=== PATIENT | male | born 1975 | race Hispanic/Latino ===

== ENCOUNTER 2024-10-26 07:43 | Emergency (ER) | payer SELFPAY ==
[2024-10-26] MEDS ORDERED: METFORMIN500 M2 PO (08:00)
[2024-10-26] MEDS ORDERED: FLUORESCEIN SODIUM 1 MG EA OD ONE (08:05)
[2024-10-26] MEDS ORDERED: TETRACAINE HCL 0.5 %/4 ML SOL OD ONE (08:05)
[2024-10-26] MEDS ORDERED: ISOVUE-300 (Iopamidol) 100 ML SDV IV ONE (08:25)
[2024-10-26] MEDS ORDERED: HYDROmorphone HCL 2 MG/AMP IV ONE (08:25)
[2024-10-26] MEDS ORDERED: MOXIFLOXACIN Hydrochloride 3 ML BTL OS ONE (08:25)
[2024-10-26] MEDS ORDERED: ONDANSETRON HCl 4 MG/2 ML SDV IV ONE (08:25)
[2024-10-26] MEDS ORDERED: AMPICILLIN & SULBACTAM SODIUM 3 GM in SODIUM CHLORIDE 0.9% 100 ML IV ONE (08:30)
[2024-10-26] MEDS ORDERED: VANCOMYCIN HCL 1 GM in SODIUM CHLORIDE 0.9% 250 ML IV ONE (08:30)
[2024-10-26] MEDS ORDERED: PIPERACILLIN Sodium-Tazobactam 3.375 GM in SODIUM CHLORIDE 0.9% 100 ML IV ONE (08:40)
[2024-10-26 08:55] LABS: BASO% 0.5 % (0-3); EOS% 11.9 % (0-8); HEMATOCRIT 46.3 % (39.0-50.0); HEMOGLOBIN 15.4 g/dl (14.0-18.0); IMMATURE GRANULOCYTES 0.1 % (0.0-5.0); LYMPH% 22.3 % (15-41); MEAN CELL VOLUME 89.9 fL CALC (80.0-100.0); MEAN CORPUSCULAR HGB 29.9 pG CALC (26.0-32.0); MEAN CORPUSCULAR HGB CONC 33.3 g/dL CAL (32.0-36.0); MONO% 5.5 % (2-13); NEUT# 4.4 thou/uL (1.82-7.42); NEUT% 59.7 % (42-76); RED BLOOD COUNT 5.15 mill/uL (4.70-6.10); RED CELL DISTRI WIDTH 14.1 % (11.5-15.5)
[2024-10-26 09:17] LABS: ALBUMIN 4.7 g/dL (3.2-5.0); BILIRUBIN, TOTAL 0.9 mg/dL (0.2-1.3); CREATININE 0.6 mg/dL (0.7-1.3); POTASSIUM 4.6 mmol/l (3.5-5.1); TOTAL PROTEIN 7.8 g/dL (6.3-8.2)
[2024-10-26] MEDS ORDERED: VIGAMOX OD (11:12)
[2024-10-26] MEDS ORDERED: NAPROXEN500 MG PO (11:12)
[2024-10-26] MEDS ORDERED: HYDROCO/APAP1 TA9 PO (11:12)
[2024-10-26] MEDS ORDERED: TOBRAMYCIN0.31 OS (11:12)
[2024-10-26 11:21] VITALS: BP 128/60
== END 2024-10-26 12:11 | disposition home or self-care (01) | DRG 122 ==
LOC: ED 07:43
PROVIDERS: Family Medicine
DX: H16.032 Corneal ulcer with hypopyon, left eye (principal); E11.9 Type 2 diabetes mellitus without complications; Z79.84 Long term (current) use of oral hypoglycemic drugs
CPT/HCPCS: J1171; J2405; J2543; Q9967

== ENCOUNTER 2024-11-18 01:40 | Emergency (ER) | payer SELFPAY ==
[2024-11-18] VITALS (7 sets, daily range): BP systolic 125–147; BP diastolic 73–86
[~2024-11-18] VITALS: Ht 167.6 cm; Wt 68.0 kg
[~2024-11-18 01:40] MED LIST: HYDROCO/APAP1 TA9 PO; METFORMIN500 M2 PO; NAPROXEN500 MG PO; TOBRAMYCIN0.31 OS; VIGAMOX OD
[2024-11-18] MEDS ORDERED: PIPERACILLIN Sodium-Tazobactam 3.375 GM in SODIUM CHLORIDE 0.9% 100 ML IV ONE (01:50)
[2024-11-18] MEDS ORDERED: ONDANSETRON HCl 4 MG/2 ML SDV IV ONE (01:55)
[2024-11-18] MEDS ORDERED: MORPHINE SULFATE 4 MG/ML VIAL IV ONE (01:55)
[2024-11-18] MEDS ORDERED: VANCOMYCIN HCL 1 GM in SODIUM CHLORIDE 0.9% 500 ML IV ONE (01:55)
[2024-11-18] MEDS ORDERED: FLUORESCEIN SODIUM 1 MG EA OU ONE (02:05)
[2024-11-18] MEDS ORDERED: MOXIFLOXACIN Hydrochloride 3 ML BTL OU ONE (02:10)
[2024-11-18 02:12] LABS: BASO% 0.1 % (0-3); EOS% 0.1 % (0-8); HEMOGLOBIN 14.7 g/dl (14.0-18.0); LYMPH% 15.3 % (15-41); MEAN CELL VOLUME 87.7 fL CALC (80.0-100.0); MEAN CORPUSCULAR HGB 30.7 pG CALC (26.0-32.0); MONO% 6.3 % (2-13); NEUT# 6.72 thou/uL (1.82-7.42); NEUT% 78.2 % (42-76); RED BLOOD COUNT 4.79 mill/uL (4.70-6.10); RED CELL DISTRI WIDTH 13.7 % (11.5-15.5)
[2024-11-18 02:21] LABS: ALBUMIN 4.4 g/dL (3.2-5.0); CREATININE 0.6 mg/dL (0.7-1.3); POTASSIUM 3.7 mmol/l (3.5-5.1); TOTAL PROTEIN 7.8 g/dL (6.3-8.2)
[2024-11-18 02:32] LABS: C-REACTIVE PROTEIN 17.5 mg/dL (0-0.9)
== END 2024-11-18 04:12 | disposition short-term general hospital (02) | DRG 125 ==
LOC: ED 01:40
PROVIDERS: Family Medicine
DX: H44.89 Other disorders of globe (principal)
CPT/HCPCS: J2405; J2543; J3370